=== PATIENT | female | born 1950 | race Two or more races ===

== ENCOUNTER 2017-12-17 21:56 | Emergency (ER) | payer MEDICAID ==
[~2017-12-17] VITALS: Ht 162.6 cm; Wt 70.0 kg
[2017-12-17 22:00] VITALS: BP 169/95
== END 2017-12-17 23:50 | disposition home or self-care (01) ==
LOC: ED 23:44
DX: S80.02XA Contusion of left knee, initial encounter (principal); S80.01XA Contusion of right knee, initial encounter; S49.92XA Unspecified injury of left shoulder and upper arm, initial encounter; I10 Essential (primary) hypertension; Z87.891 Personal history of nicotine dependence; Y93.01 Activity, walking, marching and hiking; W01.0XXA Fall on same level from slipping, tripping and stumbling without subsequent striking against object, initial encounter; Y99.8 Other external cause status; Y92.89 Other specified places as the place of occurrence of the external cause
CPT/HCPCS: 72050; 99284